=== PATIENT | male | born 1945 | race Caucasian/White ===

== ENCOUNTER 2018-01-21 09:08 | Inpatient (IN) | payer MEDICARE, OTHER ==
[~2018-01-21] VITALS: Ht 190.5 cm; Wt 101.4 kg
[~2018-01-21 09:08] MED LIST: DOCU-131 PO; HYDR-3240 PO; INSU100V8 SQ; LISI-170 PO; LOVA40TA2 PO
[2018-01-21] MEDS ORDERED: ASPIRIN 81 MG TABLET CHEW PO ONE (10:30)
[2018-01-21 10:52] LABS: BASOPHILS # (AUTO) 0.02 x10^3/uL (0-0.1); BASOPHILS % (AUTO) 0 % (0-1); EOSINOPHILS % (AUTO) 1 % (1-7); LYMPHOCYTES # (AUTO) 0.84 x10^3/uL (1-3.4); LYMPHOCYTES % (AUTO) 9 % (22-44); MD NO; MEAN CORPUSCULAR HEMOGLOBIN 31.3 pg (27.5-34.5); MEAN CORPUSCULAR HGB CONC 34.4 g/dL (33.2-36.2); MEAN CORPUSCULAR VOLUME 90.8 fL (81-97); MEAN PLATELET VOLUME 9.2 fL (7.4-10.4); MONOCYTES # (AUTO) 0.87 x10^3/uL (0.2-0.8); MONOCYTES % (AUTO) 9 % (2-9); NEUTROPHILS # (AUTO) 7.81 x10^3/uL (1.8-6.8); NEUTROPHILS % (AUTO) 81 % (42-75); PLATELET COUNT 171 x10^3/uL (130-400); RED BLOOD COUNT 5.24 x10^6/uL (4.38-5.82); RED CELL DISTRIBUTION WIDTH 13.6 % (9.4-14.8)
[2018-01-21 11:01] LABS: ALANINE AMINOTRANSFERASE 26 U/L (12-78); ALBUMIN 3.9 g/dL (3.4-5.0); ANION GAP 8 mmol/L (5-15); CALCIUM 8.5 mg/dL (8.5-10.1); CHLORIDE 106 mmol/L (98-107); CREATININE 1.09 mg/dL (0.7-1.3)
[2018-01-21] MEDS ORDERED: ASPIRIN 81 MG TABLET CHEW ONE (11:03)
[2018-01-21 11:04] LABS: ALKALINE PHOSPHATASE 79 U/L (45-117); BILIRUBIN,TOTAL 1.7 mg/dL (0.2-1.0); TOTAL PROTEIN 7.6 g/dL (6.4-8.2); TROPONIN I < 0.015 ng/mL (0.000-0.045)
[2018-01-21] MEDS ORDERED: SODIUM CHLORIDE FLUSH 10ML SYR IVF ONE (11:30)
[2018-01-21] MEDS ORDERED: OMNIPAQUE 350 MG/ML, 75ML BOTTLE ONE (12:03)
[2018-01-21] MEDS ORDERED: MORPHINE SULFATE 4 MG/ML, 1ML ONE (12:23)
[2018-01-21] MEDS: MORPHINE SULFATE 4 MG/ML, 1ML IVPush PRN ×2 (12:26→17:16)
[2018-01-21] MEDS ORDERED: HEPARIN 5,000 UNITS/ML, 1ML IV ONE (12:30)
[2018-01-21] MEDS ORDERED: METF500T27 PO (12:31)
[2018-01-21] MEDS ORDERED: LINA145C PO (12:32)
[2018-01-21] MEDS ORDERED: TEST2.5G5 TP (12:35)
[2018-01-21 12:41] LABS: INTERNATIONAL NORMALIZED RATIO 1.16 (0.93-1.1); PROTHROMBIN TIME 11.9 Seconds (9.6-11.5)
[2018-01-21] MEDS ORDERED: HEPARIN 5,000 UNITS/ML, 1ML ONE (12:48)
[2018-01-21] MEDS ORDERED: HEPARIN 25,000 UNITS/500ML PMX 500 ML ONE (12:49)
[2018-01-21] MEDS: HEPARIN 25,000 UNITS/500ML PMX 500 ML IV PRN (13:05)
[2018-01-21 13:57] VITALS: BP 159/63
[2018-01-21] MEDS ORDERED: DOCUSATE 100 MG CAPSULE PO PRN (17:00)
[2018-01-21] MEDS ORDERED: hydrALAzine 20 MG/ML, 1ML IVPush PRN (17:00)
[2018-01-21] MEDS ORDERED: ACETAMINOPHEN 325 MG TABLET PO PRN (17:00)
[2018-01-21] MEDS ORDERED: ONDANSETRON ODT 4 MG PO PRN (17:00)
[2018-01-21] MEDS ORDERED: GABAPENTIN 300 MG CAPSULE PO PRN (17:00)
[2018-01-21] MEDS ORDERED: PROMETHAZINE 25 MG/ML, 1ML IM PRN (17:00)
[2018-01-21] MEDS ORDERED: LABETALOL 5MG/ML, 20ML IVPush PRN (17:00)
[2018-01-21] MEDS ORDERED: POLYETHYLENE GLYCOL 17 GM PACKET PO PRN (17:00)
[2018-01-21] MEDS ORDERED: BISACODYL 10 MG SUPP PR PRN (17:00)
[2018-01-21] MEDS ORDERED: IBUPROFEN 600 MG TABLET PO PRN (17:00)
[2018-01-21] MEDS: KETOROLAC 30 MG/1 ML IV PRN (18:10)
[2018-01-21] MEDS: SODIUM CHLORIDE 0.9% 1,000 ML IV SCH (18:10)
[2018-01-21 18:11] LABS: FREE T4 (FREE THYROXINE) 1.17 ng/dL (0.76-1.46); THYROID STIMULATING HORMONE 0.699 mIU/L (0.358-3.740)
[2018-01-21 18:19] LABS: HEMOGLOBIN A1C 8.5 % (4.2-6.3)
[2018-01-21 19:38] LABS: MICROSCOPIC INDICATED
[2018-01-21 19:48] VITALS: BP 151/60
[2018-01-21 19:53] LABS: CULTURE INDICATED? NO
[2018-01-21] MEDS: INSULIN GLARGINE 100 UNITS/ML, PEN SQ-INSULIN SCH (21:03)
[2018-01-21] MEDS: LOVASTATIN 40 MG TABLET PO SCH (21:03)
[2018-01-21] MEDS: HEPARIN 5,000 UNITS/ML, 1ML IV PRN (21:15)
[2018-01-21] MEDS: OXYcodone IR 5MG TABLET PO PRN (22:57)
[2018-01-22 01:20] VITALS: BP 144/86
[2018-01-22 03:40] LABS: BASOPHILS # (AUTO) 0.01 x10^3/uL (0-0.1); BASOPHILS % (AUTO) 0 % (0-1); EOSINOPHILS # (AUTO) 0.11 x10^3/uL (0-0.4); EOSINOPHILS % (AUTO) 2 % (1-7); LYMPHOCYTES # (AUTO) 0.89 x10^3/uL (1-3.4); LYMPHOCYTES % (AUTO) 15 % (22-44); MD NO; MEAN CORPUSCULAR HEMOGLOBIN 31.7 pg (27.5-34.5); MEAN CORPUSCULAR HGB CONC 34.3 g/dL (33.2-36.2); MEAN CORPUSCULAR VOLUME 92.2 fL (81-97); MEAN PLATELET VOLUME 9.2 fL (7.4-10.4); MONOCYTES # (AUTO) 0.72 x10^3/uL (0.2-0.8); MONOCYTES % (AUTO) 12 % (2-9); NEUTROPHILS # (AUTO) 4.29 x10^3/uL (1.8-6.8); NEUTROPHILS % (AUTO) 71 % (42-75); PLATELET COUNT 147 x10^3/uL (130-400); RED BLOOD COUNT 4.64 x10^6/uL (4.38-5.82); RED CELL DISTRIBUTION WIDTH 13.6 % (9.4-14.8)
[2018-01-22 03:45] LABS: ALANINE AMINOTRANSFERASE 20 U/L (12-78); ALBUMIN 3.1 g/dL (3.4-5.0); ANION GAP 4 mmol/L (5-15); CALCIUM 8.1 mg/dL (8.5-10.1); CHLORIDE 106 mmol/L (98-107); CHOLESTEROL, TOTAL 109 mg/dL (140-239); CREATININE 0.95 mg/dL (0.7-1.3)
[2018-01-22 03:47] LABS: ALKALINE PHOSPHATASE 66 U/L (45-117); CHOL/HDL RATIO 3.6; HDL CHOL % 28 % (26-37); HDL CHOLESTEROL (DIRECT) 30 mg/dL (40-60); LDL CHOLESTEROL,CALCULATED 63 mg/dL (54-169); LDL/HDL RATIO 2.1 (0.5-3.0); TOTAL PROTEIN 6.5 g/dL (6.4-8.2); TRIGLYCERIDES 82 mg/dL (50-200); VLDL CHOLESTEROL 16 mg/dL (0-25)
[2018-01-22] MEDS: OXYcodone IR 5MG TABLET PO PRN (04:12)
[2018-01-22] MEDS: HEPARIN 5,000 UNITS/ML, 1ML IV PRN ×3 (04:12→18:18)
[2018-01-22] MEDS: SODIUM CHLORIDE 0.9% 1,000 ML IV SCH (04:12)
[2018-01-22 06:49] VITALS: BP 158/81
[2018-01-22] MEDS ORDERED: MORPHINE SULFATE 4 MG/ML, 1ML ONE (07:35)
[2018-01-22] MEDS: morphine SULFATE 10 MG/ML, 1ML IVPush PRN ×2 (07:41→10:58)
[2018-01-22] MEDS: LISINOPRIL 20 MG TABLET PO SCH (07:42)
[2018-01-22] MEDS: metFORMIN 500 MG TABLET PO SCH ×2 (07:42→17:05)
[2018-01-22] MEDS ORDERED: POTASSIUM CHLORIDE 20 MEQ TAB.ER.PRT PO ONE (08:00)
[2018-01-22] MEDS: INSULIN GLARGINE 100 UNITS/ML, PEN SQ-INSULIN SCH ×2 (08:55→20:42)
[2018-01-22] MEDS: TEMPLATE NON-FORMULARY MED. (Linaclotide** (Linzess**) 145 MCG) PO SCH (09:00)
[2018-01-22] MEDS: HEPARIN 25,000 UNITS/500ML PMX 500 ML IV PRN ×2 (09:16→23:37)
[2018-01-22] MEDS: ONDANSETRON 2MG/ML, 2ML IVPush PRN (12:04)
[2018-01-22] MEDS ORDERED: NALOXONE 1 MG/ML, 2ML ONE (14:18)
[2018-01-22] MEDS ORDERED: NALOXONE 0.4 MG/ML, 1ML IVPush ONE (14:30)
[2018-01-22 14:40] VITALS: BP 162/76
[2018-01-22 15:01] VITALS: BP 152/78
[2018-01-22] MEDS: KETOROLAC 30 MG/1 ML IV PRN (15:28)
[2018-01-22 19:40] VITALS: BP 143/74
[2018-01-22] MEDS: LOVASTATIN 40 MG TABLET PO SCH (20:37)
[2018-01-23 00:35] VITALS: BP 155/82
[2018-01-23] MEDS: ONDANSETRON 2MG/ML, 2ML IVPush PRN (04:14)
[2018-01-23] MEDS: OXYcodone IR 5MG TABLET PO PRN ×3 (04:14→15:58)
[2018-01-23] MEDS: LISINOPRIL 20 MG TABLET PO SCH (07:47)
[2018-01-23] MEDS: HEPARIN 25,000 UNITS/500ML PMX 500 ML IV PRN ×2 (07:48→12:10)
[2018-01-23] MEDS: HEPARIN 5,000 UNITS/ML, 1ML IV PRN (07:48)
[2018-01-23] MEDS: metFORMIN 500 MG TABLET PO SCH ×2 (07:49→17:36)
[2018-01-23 07:53] VITALS: BP 155/79
[2018-01-23] MEDS: INSULIN GLARGINE 100 UNITS/ML, PEN SQ-INSULIN SCH ×3 (07:53→21:00)
[2018-01-23] MEDS: TEMPLATE NON-FORMULARY MED. (Linaclotide** (Linzess**) 145 MCG) PO SCH (07:53)
[2018-01-23 08:35] VITALS: BP 165/84
[2018-01-23 13:38] VITALS: BP 147/76
[2018-01-23] MEDS: APIXABAN 5 MG TABLET PO SCH ×2 (13:46→23:53)
[2018-01-23] MEDS: IBUPROFEN 600 MG TABLET PO SCH ×2 (17:29→23:54)
[2018-01-23 19:19] VITALS: BP 126/69
[2018-01-23 21:11] VITALS: BP 137/70
[2018-01-23] MEDS: LOVASTATIN 40 MG TABLET PO SCH (21:26)
[2018-01-24 01:53] VITALS: BP 129/66
[2018-01-24] MEDS: IBUPROFEN 600 MG TABLET PO SCH ×2 (05:23→11:58)
[2018-01-24 06:55] VITALS: BP 135/79
[2018-01-24] MEDS: TEMPLATE NON-FORMULARY MED. (Linaclotide** (Linzess**) 145 MCG) PO SCH (09:24)
[2018-01-24] MEDS: APIXABAN 5 MG TABLET PO SCH (09:36)
[2018-01-24] MEDS: metFORMIN 500 MG TABLET PO SCH (09:37)
[2018-01-24] MEDS: LISINOPRIL 20 MG TABLET PO SCH (09:37)
[2018-01-24] MEDS: INSULIN GLARGINE 100 UNITS/ML, PEN SQ-INSULIN SCH (09:38)
[2018-01-24] MEDS ORDERED: APIX5TAB PO (13:55)
[2018-01-24 14:06] VITALS: BP 151/81
== END 2018-01-24 15:38 | disposition home or self-care (01) | DRG 175 ==
LOC: ED 12:40 → EDIP 12:41 → ED 13:20 → 3NW 13:59 → DCLOUNGE 01-24 15:21
PROVIDERS: ADMIT Internal Medicine; ATTEND Family Medicine
DX: I26.99 Other pulmonary embolism without acute cor pulmonale (principal); G92 Toxic encephalopathy; K92.0 Hematemesis; L72.3 Sebaceous cyst; E11.9 Type 2 diabetes mellitus without complications; Z88.8 Allergy status to other drugs, medicaments and biological substances; M79.1 Myalgia; Y92.89 Other specified places as the place of occurrence of the external cause; E78.5 Hyperlipidemia, unspecified; I10 Essential (primary) hypertension; T39.95XA Adverse effect of unspecified nonopioid analgesic, antipyretic and antirheumatic, initial encounter; Z79.82 Long term (current) use of aspirin
CPT/HCPCS: 36415; 70450; 71045; 71260; 80053; 80061; 81001; 82962; 83036; 83735; 84439; 84443; 84484; 85025; 85520; 85610; 85730; 93005; 93306; 96374; 99285; J1644; J1885; J2310; J2405; Q0162; Q9967; J1815; J2270; J7030

== ENCOUNTER 2018-01-25 18:45 | Inpatient (IN) | payer MEDICARE, OTHER ==
[~2018-01-25] VITALS: Ht 190.5 cm; Wt 98.2 kg
[~2018-01-25 18:45] MED LIST changes: +APIX5TAB PO; +LINA145C PO; +METF500T27 PO; +TEST2.5G5 TP
[2018-01-25] MEDS ORDERED: SODIUM CHLORIDE FLUSH 10ML SYR IVF ONE (19:30)
[2018-01-25] MEDS ORDERED: ACETAMINOPHEN 500 MG TABLET PO ONE (19:30)
[2018-01-25] MEDS ORDERED: ACETAMINOPHEN 500 MG TABLET ONE (19:39)
[2018-01-25 19:59] LABS: INTERNATIONAL NORMALIZED RATIO 1.28 (0.93-1.1); PROTHROMBIN TIME 13.1 Seconds (9.6-11.5)
[2018-01-25] MEDS ORDERED: PIPERACILLIN/TAZO/PMX 3.375GM 50 ML IV ONE (20:00)
[2018-01-25 20:01] LABS: ALANINE AMINOTRANSFERASE 32 U/L (12-78); ALBUMIN 2.8 g/dL (3.4-5.0); ANION GAP 7 mmol/L (5-15); CALCIUM 8.5 mg/dL (8.5-10.1); CHLORIDE 106 mmol/L (98-107); CREATININE 1.04 mg/dL (0.7-1.3)
[2018-01-25 20:04] LABS: ALKALINE PHOSPHATASE 79 U/L (45-117); BASOPHILS # (AUTO) 0.02 x10^3/uL (0-0.1); BASOPHILS % (AUTO) 0 % (0-1); BILIRUBIN,TOTAL 1.1 mg/dL (0.2-1.0); EOSINOPHILS # (AUTO) 0.04 x10^3/uL (0-0.4); EOSINOPHILS % (AUTO) 1 % (1-7); LYMPHOCYTES # (AUTO) 0.84 x10^3/uL (1-3.4); LYMPHOCYTES % (AUTO) 12 % (22-44); MD NO; MEAN CORPUSCULAR HEMOGLOBIN 31.4 pg (27.5-34.5); MEAN CORPUSCULAR HGB CONC 34.4 g/dL (33.2-36.2); MEAN CORPUSCULAR VOLUME 91.4 fL (81-97); MEAN PLATELET VOLUME 9.1 fL (7.4-10.4); MONOCYTES # (AUTO) 0.68 x10^3/uL (0.2-0.8); MONOCYTES % (AUTO) 10 % (2-9); NEUTROPHILS # (AUTO) 5.21 x10^3/uL (1.8-6.8); NEUTROPHILS % (AUTO) 77 % (42-75); PLATELET COUNT 229 x10^3/uL (130-400); RED CELL DISTRIBUTION WIDTH 13.2 % (9.4-14.8); TOTAL PROTEIN 6.7 g/dL (6.4-8.2)
[2018-01-25] MEDS ORDERED: PIPERACILLIN/TAZO/PMX 3.375GM 50 ML ONE (20:07)
[2018-01-25] MEDS ORDERED: POTASSIUM CHLORIDE 10% 40 MEQ/30 ML UDC PO ONE (20:30)
[2018-01-25] MEDS ORDERED: NS + 20MEQ KCL 1,000 ML IV SCH (20:53)
[2018-01-25] MEDS ORDERED: ONDANSETRON 2MG/ML, 2ML IVPush PRN (21:00)
[2018-01-25] MEDS ORDERED: PROMETHAZINE 25 MG/ML, 1ML IM PRN (21:00)
[2018-01-25] MEDS ORDERED: ACETAMINOPHEN 325 MG TABLET PO PRN (21:00)
[2018-01-25] MEDS ORDERED: POLYETHYLENE GLYCOL 17 GM PACKET PO PRN (21:00)
[2018-01-25] MEDS ORDERED: HYDROcodone/APAP 5/325 TABLET PO PRN (21:00)
[2018-01-25] MEDS ORDERED: VANCOMYCIN PER PHARMACY MC PRN (21:00)
[2018-01-25] MEDS ORDERED: DOCUSATE 100 MG CAPSULE PO PRN (21:00)
[2018-01-25] MEDS ORDERED: GUAIFENESIN/COD200MG-20MG/10ML LIQUID PO PRN (21:00)
[2018-01-25] MEDS ORDERED: morphine SULFATE 10 MG/ML, 1ML IVPush PRN (21:00)
[2018-01-25 22:00] VITALS: BP 124/73
[2018-01-25] MEDS ORDERED: PHARMACOKINETIC MONITORING MC PRN (23:00)
[2018-01-25] MEDS ORDERED: PHARMACOKINETIC CONSULTATION MC ONE (23:00)
[2018-01-25] MEDS: VANCOMYCIN 2,000 MG in SODIUM CHLORIDE 0.9% 500 ML IV SCH (23:36)
[2018-01-26] VITALS (7 sets, daily range): BP systolic 157–168; BP diastolic 74–92
[2018-01-26] MEDS: PIPERACILLIN/TAZO/PMX 3.375GM 50 ML IV SCH ×4 (04:32→22:11)
[2018-01-26 05:03] LABS: CULTURE INDICATED? YES; MICROSCOPIC INDICATED
[2018-01-26 05:44] LABS: CHLORIDE 107 mmol/L (98-107)
[2018-01-26 05:50] LABS: ANION GAP 7 mmol/L (5-15); CALCIUM 8.2 mg/dL (8.5-10.1); CREATININE 1.01 mg/dL (0.7-1.3)
[2018-01-26] MEDS: INSULIN LISPRO 100 UNITS/ML, PEN SQ-INSULIN SCH ×4 (07:00→20:48)
[2018-01-26] MEDS: APIXABAN 5 MG TABLET PO SCH ×2 (09:51→20:43)
[2018-01-26] MEDS: SENNA/DOCUSATE TABLET PO SCH (09:51)
[2018-01-26] MEDS: LISINOPRIL 20 MG TABLET PO SCH (11:08)
[2018-01-26] MEDS ORDERED: metFORMIN 500 MG TABLET ONE ×2 (11:31→11:32)
[2018-01-26] MEDS: INSULIN GLARGINE 100 UNITS/ML, PEN SQ-INSULIN SCH ×2 (11:39→20:57)
[2018-01-26] MEDS: CARVEDILOL 3.125 MG TABLET PO SCH ×2 (15:14→20:43)
[2018-01-26] MEDS ORDERED: POTASSIUM CHLORIDE 20 MEQ TAB.ER.PRT PO ONE (16:30)
[2018-01-26] MEDS ORDERED: metFORMIN 500 MG TABLET PO SCH ×2 (17:00)
[2018-01-26] MEDS: LOVASTATIN 40 MG TABLET PO SCH (20:43)
[2018-01-26] MEDS: metFORMIN XR 500 MG TAB.ER.24H PO SCH (20:44)
[2018-01-26] MEDS ORDERED: INSULIN GLARGINE HUM REC ANLOG 40 UNIT SQ SCH (21:00)
[2018-01-26] MEDS: VANCOMYCIN 2,000 MG in SODIUM CHLORIDE 0.9% 500 ML IV SCH (22:52)
[2018-01-27 02:44] VITALS: BP 150/73
[2018-01-27] MEDS: PIPERACILLIN/TAZO/PMX 3.375GM 50 ML IV SCH (03:56)
[2018-01-27 05:40] LABS: ANION GAP 7 mmol/L (5-15); CALCIUM 8.3 mg/dL (8.5-10.1); CHLORIDE 109 mmol/L (98-107); CREATININE 1.06 mg/dL (0.7-1.3)
[2018-01-27 06:39] VITALS: BP 186/85
[2018-01-27] MEDS: INSULIN LISPRO 100 UNITS/ML, PEN SQ-INSULIN SCH ×4 (06:56→20:46)
[2018-01-27 07:03] VITALS: BP 167/83
[2018-01-27] MEDS ORDERED: DEXTROSE 4 GM TAB.CHEW PO PRN (07:30)
[2018-01-27] MEDS ORDERED: GLUCAGON 1 MG IM PRN (07:30)
[2018-01-27] MEDS ORDERED: DEXTROSE 50%, 50ML SYRINGE IVPush PRN (07:30)
[2018-01-27] MEDS ORDERED: CEFTRIAXONE 1,000 MG in SODIUM CHLORIDE 0.9% 50 ML IV SCH (07:30)
[2018-01-27] MEDS: metFORMIN XR 500 MG TAB.ER.24H PO SCH ×2 (08:15→20:38)
[2018-01-27] MEDS: POTASSIUM CHLORIDE 20 MEQ PACKET PO SCH ×2 (08:15→16:06)
[2018-01-27] MEDS: SODIUM CHLORIDE FLUSH 10ML SYR IVF SCH ×2 (09:00→20:38)
[2018-01-27] MEDS: SENNA/DOCUSATE TABLET PO SCH (09:00)
[2018-01-27] MEDS ORDERED: LISINOPRIL 20 MG TABLET PO SCH (09:00)
[2018-01-27] MEDS ORDERED: TEMPLATE NON-FORMULARY MED. (Linaclotide** (Linzess**) 145 MCG) PO SCH (09:00)
[2018-01-27] MEDS: TESTOSTERONE GEL 1%,2.5GM PACKET TD SCH (09:00)
[2018-01-27] MEDS: DOXYCYCLINE 100 MG in DEXTROSE 5% 250 ML IV SCH ×2 (09:23→20:37)
[2018-01-27] MEDS: APIXABAN 5 MG TABLET PO SCH ×2 (09:41→20:39)
[2018-01-27] MEDS: LISINOPRIL 20 MG TABLET PO SCH (09:41)
[2018-01-27] MEDS: CARVEDILOL 3.125 MG TABLET PO SCH ×2 (09:41→20:39)
[2018-01-27] MEDS: INSULIN GLARGINE 100 UNITS/ML, PEN SQ-INSULIN SCH ×2 (09:45→20:58)
[2018-01-27] MEDS ORDERED: LABETALOL 5MG/ML, 20ML IVPush PRN (12:00)
[2018-01-27] MEDS: DIPHENHYDRAMINE 25 MG CAPSULE PO PRN (12:38)
[2018-01-27 12:59] VITALS: BP 154/77
[2018-01-27 19:00] VITALS: BP 159/70
[2018-01-27] MEDS: LOVASTATIN 40 MG TABLET PO SCH (20:39)
[2018-01-28 01:19] VITALS: BP 150/83
[2018-01-28 05:04] LABS: BASOPHILS # (AUTO) 0.02 x10^3/uL (0-0.1); BASOPHILS % (AUTO) 0 % (0-1); EOSINOPHILS # (AUTO) 0.19 x10^3/uL (0-0.4); EOSINOPHILS % (AUTO) 3 % (1-7); LYMPHOCYTES # (AUTO) 0.76 x10^3/uL (1-3.4); LYMPHOCYTES % (AUTO) 11 % (22-44); MD NO; MEAN CORPUSCULAR HEMOGLOBIN 31.1 pg (27.5-34.5); MEAN CORPUSCULAR HGB CONC 33.6 g/dL (33.2-36.2); MEAN CORPUSCULAR VOLUME 92.6 fL (81-97); MEAN PLATELET VOLUME 9.4 fL (7.4-10.4); MONOCYTES % (AUTO) 10 % (2-9); NEUTROPHILS # (AUTO) 5.39 x10^3/uL (1.8-6.8); NEUTROPHILS % (AUTO) 76 % (42-75); PLATELET COUNT 243 x10^3/uL (130-400); RED BLOOD COUNT 4.15 x10^6/uL (4.38-5.82); RED CELL DISTRIBUTION WIDTH 13.4 % (9.4-14.8)
[2018-01-28 05:17] LABS: ALBUMIN 2.6 g/dL (3.4-5.0); ANION GAP 6 mmol/L (5-15); CALCIUM 8.4 mg/dL (8.5-10.1); CHLORIDE 108 mmol/L (98-107)
[2018-01-28 05:21] LABS: ALANINE AMINOTRANSFERASE 66 U/L (12-78); ALKALINE PHOSPHATASE 81 U/L (45-117); BILIRUBIN,TOTAL 0.6 mg/dL (0.2-1.0); CREATININE 1.09 mg/dL (0.7-1.3); TOTAL PROTEIN 6.5 g/dL (6.4-8.2)
[2018-01-28] MEDS: INSULIN LISPRO 100 UNITS/ML, PEN SQ-INSULIN SCH (06:09)
[2018-01-28] MEDS ORDERED: AMOXICILLIN/CLAV 875-125MG TABLET PO SCH (07:00)
[2018-01-28] MEDS: metFORMIN XR 500 MG TAB.ER.24H PO SCH (07:36)
[2018-01-28] MEDS: POTASSIUM CHLORIDE 20 MEQ PACKET PO SCH (07:36)
[2018-01-28] MEDS: DIPHENHYDRAMINE 25 MG CAPSULE PO PRN (07:38)
[2018-01-28] MEDS: INSULIN GLARGINE 100 UNITS/ML, PEN SQ-INSULIN SCH (08:30)
[2018-01-28] MEDS: LISINOPRIL 20 MG TABLET PO SCH (08:37)
[2018-01-28] MEDS: APIXABAN 5 MG TABLET PO SCH (08:37)
[2018-01-28] MEDS: CARVEDILOL 3.125 MG TABLET PO SCH (08:38)
[2018-01-28] MEDS: SENNA/DOCUSATE TABLET PO SCH (08:38)
[2018-01-28] MEDS: SODIUM CHLORIDE FLUSH 10ML SYR IVF SCH (08:38)
[2018-01-28] MEDS: TESTOSTERONE GEL 1%,2.5GM PACKET TD SCH (08:39)
[2018-01-28] MEDS ORDERED: DOXYCYCLINE 100MG TABLET PO SCH (09:00)
[2018-01-28 09:56] VITALS: BP 166/80
[2018-01-28] MEDS ORDERED: HYDR25TA6 PO (10:38)
[2018-01-28] MEDS ORDERED: DOXY100T PO (10:38)
[2018-01-28] MEDS ORDERED: AMOX1TAB12 PO (10:38)
[2018-01-28] MEDS ORDERED: INSU100I13 SQ-INSULIN (10:38)
[2018-02-01] MEDS ORDERED: APIXABAN 5 MG TABLET PO SCH (09:00)
== END 2018-01-28 12:00 | disposition home or self-care (01) | DRG 871 ==
LOC: ED 19:57 → EDIP 20:53 → 4NOR 22:15 → DCLOUNGE 01-28 11:47
PROVIDERS: ADMIT Family Medicine; ATTEND Family Medicine
DX: A41.9 Sepsis, unspecified organism (principal); J15.9 Unspecified bacterial pneumonia; G93.41 Metabolic encephalopathy; E44.0 Moderate protein-calorie malnutrition; D68.69 Other thrombophilia; R04.2 Hemoptysis; E78.5 Hyperlipidemia, unspecified; E87.6 Hypokalemia; E11.649 Type 2 diabetes mellitus with hypoglycemia without coma; G47.00 Insomnia, unspecified; I10 Essential (primary) hypertension; M79.7 Fibromyalgia; Z68.27 Body mass index [BMI] 27.0-27.9, adult; Z88.8 Allergy status to other drugs, medicaments and biological substances; Z79.01 Long term (current) use of anticoagulants; Z86.711 Personal history of pulmonary embolism; Z90.49 Acquired absence of other specified parts of digestive tract
CPT/HCPCS: 36415; 71045; 80048; 80053; 81001; 82962; 83036; 83605; 83735; 84145; 85025; 85610; 85730; 86480; 87040; 87070; 87086; 87205; 93005; 96365; 99285; J0696; J2543; J3370; J3480; J7060; J1815; J7040; Q0163